=== PATIENT | female | born 1975 | race Caucasian/White ===

== ENCOUNTER 2017-10-03 08:58 | Outpatient (CLI) | payer OTHER ==
[~2017-10-03 08:58] MED LIST: NORMAL SALINE 250 ML IV PRN; NORMAL SALINE IV PRN; POTASSIUM CHLORIDE IV PRN
[2017-10-03 09:53] VITALS: BP 126/79
[2017-10-03] MEDS ORDERED: ONDANSETRON HCL INJ/PF 4 MG/2 ML SDV IV ONE (10:30)
== END 2017-10-03 12:57 | disposition home or self-care (01) ==
LOC: II 08:58 → 5TH 09:03 → II 12:57
PROVIDERS: ATTEND Internal Medicine Hematology & Oncology
PROC: 3E033GC Introduction of Other Therapeutic Substance into Peripheral Vein, Percutaneous Approach (ICD-10-PCS; principal; 2017-10-03)
DX: E87.6 Hypokalemia (principal)
CPT/HCPCS: 96365; 96366; 96375; J3480; J2405; J7040

== ENCOUNTER → 2018-08-01 | Outpatient (CLI) | payer OTHER ==
[~2018-08-01] MED LIST changes: +ALBUTEROL SULFATE 0.083% NEB 2.5 MG/3 ML AMPUL NEB ONE; -NORMAL SALINE 250 ML IV PRN; -NORMAL SALINE IV PRN; -POTASSIUM CHLORIDE IV PRN
--- NOTE | 2018-08-04 11:29 | Pulmonary Function Test ---
Pulmonary Function Test Date of Procedure:: 08/04/18 INDICATION:: Dyspnea Referring Provider: Dr. Iglesias Chief Relay Tester: Yaquelin Pichardo MECHANICAL MAINTENANCE SUPERVISOR - Report Spirometry: FVC 2.00 L 61% postbronchodilator 2.05 L 62% FEV1 1.67 L 61% postbronchodilator 1.78 L 65% FEV1/FVC % 84 postbronchodilator 67 predicted 85 FEF 25-75% 2.05 L 66% postbronchodilator 2.14 L 69% Diffusion Capactity: Diffusion capacity 10 38% DLCO 3.81 89% Impression: Restrictive defect is implied by the decrease in FVC. Restrictive defect cannot be diagnosed on the basis of spirometry alone. (Restrictive defect may mask the degree of obstruction). Severe decrease in diffusion capacity.
== END ==
LOC: RT 07:08
DX: J84.116 Cryptogenic organizing pneumonia (principal); R06.00 Dyspnea, unspecified
CPT/HCPCS: 94060; 94729

== ENCOUNTER → 2020-01-04 | Outpatient (CLI) | payer MEDICARE, OTHER ==
--- NOTE | 2020-01-04 15:31 | RADIOLOGY REPORT (SQ) ---
EXAM DESCRIPTION: NM GASTRIC EMPTYING STUDY IMAGES COMPLETED DATE/TIME: 01/04/2020 12:57 pm REASON FOR STUDY: GASTROPARESIS K31.84 GASTROPARESIS COMPARISON: None. RADIONUCLIDE AND DOSE: 2.0 millicuries Tc-99m Sulfur Colloid. A wide variety of solid foods have been used. The route of agent administration: Oral. TECHNIQUE: 1 minute serial static imaging performed at time of meal, 1 hour, 2 hours, 3 hours, and 4 hours as needed. Once stomach reaches 90% emptying, the test is complete. Image intensity values pl otted with respect to time with linear regression algorithm. LIMITATIONS: None. FINDINGS: Patient was observed for 4 hours. Immediate post meal serves as baseline. Gastric emptying at 30 minutes was 28.4%. Gastric emptying at 60 minutes was 37.1% Gastric emptying at 90 minutes was 43.3%. Gastric emptying at 120 minutes was 48.2%. Gastric emptying at 240 minutes was 61.5%. Normal values: 60 minutes: 30-90% retained. If less than 30%, abnormally rapid emptying. If greater than 90%, delaye d gastric emptying. 120 minutes: <60% retained. If greater than 60%, delayed gastric emptying. 240 minutes: <10% retained. If greater than 10%, delayed gastric emptying. IMPRESSION: 1. ABNORMAL GASTRIC EMPTYING as above. TECHNICAL DOCUMENTATION: JOB ID: [id number] 2010 [employer]- All Rights Reserved rev-09/06 Reading location - IP/workstation name: [email or web address]
== END ==
LOC: RAD 07:31
PROVIDERS: ATTEND Internal Medicine Gastroenterology
DX: K31.84 Gastroparesis (principal)
CPT/HCPCS: 78264; A9541